=== PATIENT | female | born 2000 | race African-American/Black ===

== ENCOUNTER 2024-06-08 16:27 | Emergency (ER) | payer SELFPAY ==
[~2024-06-08] VITALS: Ht 167.6 cm; Wt 60.0 kg
[2024-06-08 16:38] VITALS: O2SAT 100
[2024-06-08 17:18] VITALS: BP 117/76; PULSE 89; RESP 18; TEMP 98.7; O2SAT 99
== END 2024-06-08 19:57 | disposition left against medical advice (07) ==
LOC: ER 16:27
DX: H57.89 Other specified disorders of eye and adnexa (principal); Z53.21 Procedure and treatment not carried out due to patient leaving prior to being seen by health care provider